=== PATIENT | male | born 1965 | race Caucasian/White ===

== ENCOUNTER 2021-09-07 21:22 | Emergency (ER) | payer BC, SELFPAY ==
--- NOTE | 2021-09-07 21:24 | USR_ITS ---
PROCEDURE INFORMATION: Exam: US Scrotum Exam date and time: 09/07/2021 10:35 PM Age: 56 years old Clinical indication: Groin pain; Additional info: R sided groin pain TECHNIQUE: Imaging protocol: Real-time ultrasound of the scrotum and contents with color Doppler and image documentation. COMPARISON: No relevant prior studies available. FINDINGS: Right testicle: Right testicle measures 2.8 x 3.9 x 2.6 cm. There is normal uniform echogenicity. There is no focal mass in the right testicle. There is normal Doppler flow. Left testicle: Left testicle measures 3.4 x 3.6 x 2.0 cm. There is normal uniform echogenicity without focal mass. There is normal Doppler flow. Epididymides: There is a large left epididymal cyst measuring approximately 8 x 14 x 11 mm. Right epididymis is unremarkable. Scrotum: Normal. Other findings: No free fluid is identified. Imaging in the right groin area where the patient complains pain did not show specific abnormality. US/US scrotum [id number] IMPRESSION: 1. Left epididymal cyst. 2. Otherwise unremarkable sound of the scrotum.
[2021-09-07 21:43] VITALS: BP 152/98; PULSE 106; RESP 16; TEMP 37; O2SAT 94; BMI 38.0
--- NOTE | 2021-09-07 22:29 | W.ED.GENADLT ---
Documented by User: Karl Knight MD 09/08/21 11:04 HPI - General Adult General: Chief complaint: General Medical Stated complaint: RT side groin pain Time Seen by Provider: 09/07/21 21:53 History of Present Illness: Patient is a 56-year-old male with a history prior abdominal hernia status post repair who presents the emergency room for evaluation of right-sided groin pain and paresthesia x1 month. Patient says that for the last month, he has had achy intermittent pain with range of the right hip with paresthesia to the right groin and right buttock area. Patient denies any nausea vomiting fever chills, new penile drainage, urinary complaints. Patient denies any testicular swelling or pain. Patient tells me that he went to see a chiropractor and has had manipulation done in the right leg with some improvement in pain. However, since patient has persistent paresthesia and pain, he decided to come to the emergency room for evaluation. Patient denies any history of renal colic. Patient denies any hernia or any bulge in the right groin area. Onset:1 month ago Duration:1 month Location:home Severity:moderate Associated symptoms: Deny chest pain, dyspnea, nausea, rash, palpitations or vomiting Review of Systems Const: Denies: fever(s) or chills Eyes: Denies: change in vision ENMT: Denies: mouth pain Card: Denies: chest pain or palpitations Resp: Denies: dyspnea or non-productive cough GI: Denies: abdominal pain, nausea, vomiting or diarrhea : Reports: other (+R groin pain and paresthesia); Denies: dysuria Musc: Denies: extremity pain Skin/Breast: Denies: rash or new lesions Neuro: Denies: weakness in extremities Psych: Reports: other (Normal mood) Rasheed/Lymph: Denies: easy bruising PFSH ED PFSH: Medical History (Updated 09/07/21 @ 23:42 by FAYE Lovell) Abdominal hernia Social History (Updated 09/07/21 @ 22:32 by Karl Knight MD) Smoking and tobacco status: current every day smoker Alcohol intake: never Physical Exam Const: COMMON NORMALS: alert HENMT: COMMON NORMALS: atraumatic HEAD & SCALP: atraumatic MOUTH: moist mucous membranes not abnormal Eye: COMMON NORMALS: EOMs intact bilaterally and conjunctivae normal CONJUNCTIVA: Yes conjunctivae normal Neck/C-Spine: COMMON NORMALS: full ROM and supple Resp: COMMON NORMALS: normal respiratory effort and clear to auscultation bilaterally AUSCULTATION: clear to auscultation bilaterally Cardio: COMMON NORMALS: regular rate RATE: regular rate GI: COMMON NORMALS: Soft to palpation and non-tender PALPATION: Yes Soft to palpation : OTHER: Normal external genitalia, Testicles non-tender b/l, no erythema. No palpable hernia on the right side, no tenderness palpation over the right groin Extremity: COMMON NORMALS: full ROM Neuro: SENSORIUM/ORIENTATION: Yes alert MOTOR EXAM: No Abnormal motor strength present and Other motor observations present (no focal motor deficits) Psych: COMMON NORMALS: speech normal SPEECH: Yes normal speech MOOD & AFFECT: Yes euthymic mood Course Vital Signs: Vital signs: Vital Signs Temperature 98.6 F 09/07/21 21:43 Pulse Rate 70 09/07/21 23:55 Respiratory Rate 20 H 09/07/21 23:55 Blood Pressure 147/96 09/07/21 23:55 Pulse Oximetry 95 09/07/21 23:55 MDM - General Adult Medical Decision Making 56-year-old male presented to the emergency room with complaints of right groin pain and paresthesias x30 days. Physical exam did not show any signs of testicular tenderness or swelling. Procedure. Reflex intact bilaterally. Patient is currently pain-free. Offer ultrasound and UA patient agrees with plan. I have given patient follow up with our nurse case manager to be seen by our outpatient Urology for evaluation of groin pain and paresthesia. Patient aware of a call from our nurse case manager to schedule for appointment(s) and verbalizes understanding of the importance of following up. Case signed out to Orlando Veliz pending UA and US Lab Data Radiology Impressions Scrotum Ultrasound 09/07/21 21:24 IMPRESSION: 1. Left epididymal cyst. 2. Otherwise unremarkable sound of the scrotum. Hip/Pelvis X-Ray 09/07/21 23:25 IMPRESSION: Degenerative changes as described. Laboratory Results Urine Color Yellow (Yellow) 09/07/21 22:40 Urine Appearance Clear (CLEAR) 09/07/21 22:40 Urine pH 5 (5-7) 09/07/21 22:40 Ur Specific [place] 1.020 (1.005-1.030) 09/07/21 22:40 Urine Protein Neg (Negative) 09/07/21 22:40 Urine Glucose (UA) 4+ (Normal) H 09/07/21 22:40 Urine Ketones Negative (Negative) 09/07/21 22:40 Urine Blood Neg (Negative) 09/07/21 22:40 Urine Nitrate Negative (Negative) 09/07/21 22:40 Urine Bilirubin Neg (Negative) 09/07/21 22:40 Urine Urobilinogen Norm mg/dL (Negative) 09/07/21 22:40 Ur Leukocyte Esterase Negative (Negative) 09/07/21 22:40 Discharge Plan Discharge Patient Disposition: Home Clinical Impression: Groin pain Labral tear of hip joint Qualifiers: Encounter type: initial encounter Laterality: right Qualified Code(s): S73.191A - Other sprain of right hip, initial encounter Condition: Stable Prescriptions: New acetaminophen 500 mg tablet 500 mg PO Q6H PRN (Reason: pain) 5 Days Qty: 20 0RF gabapentin 300 mg capsule 300 mg PO DAILY 10 Days Qty: 10 0RF Discharge Orders: Discharge ED (Routine); Ordered 09/07/21 Ordered By: Reed Veliz Referrals: Suzanna Baron APN [Primary Care Provider] - Discharge Diet: Advance as tolerated Discharge Activity: Increase activity as tolerated Patient Instructions: Groin Pain (ED) Activity Restrictions/Additional Instructions: Our nurse case manager will have you follow-up with Dr. Jeong in the next few days. You would be expected to have a phone call with our nurse case manager who will put you on the schedule. You can expect a call from us in the next 2-3 days. If you don't hear from us, call us back in the emergency room at [phone]. Please come back to the emergency room have any significant pain, new penile drainage, nausea/vomiting, testicular swelling, or any new concerning complaints. Coding Level of Care Code ED Professor Of Nursing for Chg Fwd Exam Comprehensive Documented by User: FAYE Lovell 09/08/21 00:03 HPI - General Adult General: Chief complaint: General Medical Stated complaint: RT side groin pain Time Seen by Provider: 09/07/21 21:53 PFSH ED PFSH: Medical History (Updated 09/07/21 @ 23:42 by FAYE Lovell) Abdominal hernia Social History (Updated 09/07/21 @ 22:32 by Karl Knight MD) Smoking and tobacco status: current every day smoker Alcohol intake: never Course Vital Signs: Vital signs: Vital Signs Temperature 98.6 F 09/07/21 21:43 Pulse Rate 70 09/07/21 23:55 Respiratory Rate 20 H 09/07/21 23:55 Blood Pressure 147/96 09/07/21 23:55 Pulse Oximetry 95 09/07/21 23:55 MDM - General Adult Medical Decision Making 56-year-old male presented to the emergency room with complaints of right groin pain and paresthesias x30 days. Physical exam did not show any signs of testicular tenderness or swelling. Procedure. Reflex intact bilaterally. Patient is currently pain-free. Offer ultrasound and UA patient agrees with plan. I have given patient follow up with our nurse case manager to be seen by our outpatient Urology for evaluation of groin pain and paresthesia. Patient aware of a call from our nurse case manager to schedule for appointment(s) and verbalizes understanding of the importance of following up. Case signed out to Orlando Veliz pending UA and US Discussed ultrasound and urine analysis with Mr. Moreno, patient. During discussion it was said that patient has had increased pain and discomfort to the right hip for the past few weeks after stepping off the porch wrong and jamming the hip. Since then patient had pain and discomfort with difficulty finding a comfortable position to rest. Patient discusses that it feels like his hip is catching. I ordered the x-ray of the hip for evaluation of degenerative joint disease. Will recommend follow-up with orthopedist for further evaluation. Patient was agreeable to plan. Ultrasound noted a epididymal cyst. Hip x-ray noted some degenerative joint disease but no fractures. Suspect patient probably has a labral tear of the hip recommend follow-up with orthopedist for further evaluation. Case management was requested for referral. Lab Data Radiology Impressions Scrotum Ultrasound 09/07/21 21:24 IMPRESSION: 1. Left epididymal cyst. 2. Otherwise unremarkable sound of the scrotum. Hip/Pelvis X-Ray 09/07/21 23:25 IMPRESSION: Degenerative changes as described. Laboratory Results Urine Color Yellow (Yellow) 09/07/21 22:40 Urine Appearance Clear (CLEAR) 09/07/21 22:40 Urine pH 5 (5-7) 09/07/21 22:40 Ur Specific [place] 1.020 (1.005-1.030) 09/07/21 22:40 Urine Protein Neg (Negative) 09/07/21 22:40 Urine Glucose (UA) 4+ (Normal) H 09/07/21 22:40 Urine Ketones Negative (Negative) 09/07/21 22:40 Urine Blood Neg (Negative) 09/07/21 22:40 Urine Nitrate Negative (Negative) 09/07/21 22:40 Urine Bilirubin Neg (Negative) 09/07/21 22:40 Urine Urobilinogen Norm mg/dL (Negative) 09/07/21 22:40 Ur Leukocyte Esterase Negative (Negative) 09/07/21 22:40 Discharge Plan Discharge Patient Disposition: Home Clinical Impression: Groin pain Labral tear of hip joint Qualifiers: Encounter type: initial encounter Laterality: right Qualified Code(s): S73.191A - Other sprain of right hip, initial encounter Condition: Stable Prescriptions: New acetaminophen 500 mg tablet 500 mg PO Q6H PRN (Reason: pain) 5 Days Qty: 20 0RF gabapentin 300 mg capsule 300 mg PO DAILY 10 Days Qty: 10 0RF Discharge Orders: Discharge ED (Routine); Ordered 09/07/21 Ordered By: Reed Veliz Referrals: Suzanna Baron APN [Primary Care Provider] - Discharge Diet: Advance as tolerated Discharge Activity: Increase activity as tolerated Patient Instructions: Groin Pain (ED) Activity Restrictions/Additional Instructions: Our nurse case manager will have you follow-up with Dr. Jeong in the next few days. You would be expected to have a phone call with our nurse case manager who will put you on the schedule. You can expect a call from us in the next 2-3 days. If you don't hear from us, call us back in the emergency room at [phone]. Please come back to the emergency room have any significant pain, new penile drainage, nausea/vomiting, testicular swelling, or any new concerning complaints. Coding Level of Care Code ED Professor Of Nursing for Chg Fwd Exam Comprehensive
[2021-09-07 22:47] LABS: Add Urine Microscopic? NO; Charge for UA Resulting for Rev
[2021-09-07] MEDS: acetaminophen 500 mg Tablet PO (23:01)
[2021-09-07] MEDS: ketorolac 30 mg/mL INJ IM (23:02)
[2021-09-07 23:17] LABS: Protein Urine Neg (Negative); Urine Appearance Clear (CLEAR); Urine Color Yellow (Yellow); pH Urine 5 (5-7)
[2021-09-07 23:18] LABS: Bilirubin Urine Neg (Negative); Blood Urine Neg (Negative); Glucose Urine UA 4+ (Normal); Ketones Urine Negative (Negative); Leukocyte Esterase Urine Negative (Negative); Nitrate Urine Negative (Negative); Urobilinogen Urine Norm (Negative)
--- NOTE | 2021-09-07 23:25 | XRR_ITS ---
PROCEDURE INFORMATION: Exam: XR Right Hip Exam date and time: 09/07/2021 11:31 PM Age: 56 years old Clinical indication: Hip pain; Right hip; Patient HX: C/O RT hip/groin pain with radiation down leg. ; Additional info: Persistent pain, history of injury 2 weeks TECHNIQUE: Imaging protocol: XR Right hip. Views: 1 view hip with pelvis when performed. COMPARISON: CR XR KUB [id number] 12/09/2015 12:34 PM FINDINGS: Bones/joints: There are degenerative changes in the hip with some superior narrowing of the joint space and spurring from the acetabular margins. No fracture is identified. Soft tissues: Unremarkable. XR/XR hip RT 2-3V wo/w pel* [id number] IMPRESSION: Degenerative changes as described.
[2021-09-07 23:55] VITALS: BP 147/96; PULSE 70; RESP 20; O2SAT 95
--- NOTE | 2021-09-08 09:08 | DCPLANNER ---
internet manager had message to schedule a follow up appointment for patient with urology. internet manager sent patients information to the front office staff at urology. Patients information will be printed and reviewed. Clinic will call patient with appointment information.
--- NOTE | 2021-09-08 09:13 | DCPLANNER ---
Addendum entered by Kayla Key 09/13/21 19:26: Patient had a follow up appointment scheduled with ortho - patient did attend appointment. Addendum entered by Kayla Key 09/12/21 06:44: Patient has a follow up appointment scheduled for Sunday, September 12, 2021 at 10:00 with Adryan TUCKER at ortho. Clinic will call patient with appointment information. Original Note: employment agency manager had message to schedule a follow up appointment for patient with ortho. employment agency manager sent patients information to the front office staff at ortho. Patients information will be printed and reviewed. Clinic will call patient with appointment information.
== END 2021-09-07 23:57 | disposition home or self-care (01) ==
PROVIDERS: Emergency Provider Emergency Medicine; PCP Nurse Practitioner Family
DX: S73.191A Other sprain of right hip, initial encounter (principal); X58.XXXA Exposure to other specified factors, initial encounter; N50.3 Cyst of epididymis; R10.30 Lower abdominal pain, unspecified; F17.200 Nicotine dependence, unspecified, uncomplicated
CPT/HCPCS: 73502; 76870; 81003; 96372; 99283; J1885

== ENCOUNTER → 2021-09-12 10:55 | Outpatient (BNVA) | payer BC, SELFPAY | PROVIDERS: PCP Nurse Practitioner Family; Referring Provider Emergency Medicine; Visit Provider Physician Assistant | DX: M54.50 Low back pain, unspecified (principal) | CPT/HCPCS: 72110 ==